=== PATIENT | female | born 1965 | race African-American/Black ===

== ENCOUNTER 2020-03-13 06:19 | Day surgery (SDC) | payer OTHER ==
[2020-03-06 09:11] LABS: BASOPHILS % (AUTO) 0.7 % (0.0-5.0); EOSINOPHILS % (AUTO) 2.3 % (0.0-8.0); HEMATOCRIT 33.8 % (36-48); LYMPHOCYTES % (AUTO) 43.4 % (21.0-51.0); MEAN CORPUSCULAR HEMOGLOBIN 27.9 pg (27.0-33.0); MEAN CORPUSCULAR HGB CONC 33.1 g/dL (32.0-36.0); MEAN CORPUSCULAR VOLUME 84.3 fL (79-99); MONOCYTES % (AUTO) 7.7 % (3.0-13.0); NEUTROPHILS % (AUTO) 45.4 % (40.0-77.0); PLATELET COUNT (AUTO) 326 K/uL (130-400); RED BLOOD CELL COUNT(AUTO) 4.01 MIL/uL (4.00-5.50); RED CELL DISTRIBUTION WIDTH 13.9 % (11.0-15.5); WHITE BLOOD COUNT (AUTO) 4.4 K/uL (4.8-10.8)
[2020-03-06 09:18] LABS: CREATININE 0.9 mg/dL (0.5-1.5); POTASSIUM 4.7 mmol/L (3.5-5.1)
[2020-03-08 14:35] VITALS: BP 137/71
[~2020-03-13] VITALS: Ht 157.5 cm; Wt 75.3 kg
[2020-03-13] VITALS (17 sets, daily range): BP systolic 108–139; BP diastolic 58–81
[~2020-03-13 06:19] MED LIST: ATOR40TA71 PO; BUSP15TA3 PO; CELE400C PO; CYCL10TA7 PO; GABA-529 PO; LISI-661 PO; METOPROLOL PO; SERT50TA12 PO; VENL150C2 PO; [UNRECOGNIZED DRUG - OTHER] PO
[2020-03-13] MEDS ORDERED: LACTATED RINGERS 1000ML 1,000 ML IV ONE (07:33)
[2020-03-13] MEDS ORDERED: SUCCINYLCHOLINE CHLORIDE 20 MG/ML 10 ML VIAL ONE (07:50)
[2020-03-13] MEDS ORDERED: ROCURONIUM 10MG/1ML SYR 10 MG/ML ML ONE (07:51)
[2020-03-13] MEDS ORDERED: FENTANYL CITRATE PF 50 MCG/1 ML 2ML VIAL ONE (07:51)
[2020-03-13] MEDS ORDERED: PROPOFOL 10 MG/ML 20ML VIAL IV ONE (07:51)
[2020-03-13] MEDS ORDERED: MIDAZOLAM HCL 1 MG/ML 2ML VIAL ONE (07:56)
[2020-03-13] MEDS ORDERED: ROPIVACAINE 0.5% 5MG/ML 30ML IJ ONE (07:57)
[2020-03-13] MEDS: CEFAZOLIN SODIUM 1 GM VIAL IVP SCH ×2 (08:00→09:27)
[2020-03-13] MEDS ORDERED: EPINEPHRINE 1 MG/ML 30ML VIAL IJ ONE (08:32)
[2020-03-13] MEDS ORDERED: ONDANSETRON HCL 4 MG/2 ML VIAL ONE (11:48)
[2020-03-13] MEDS ORDERED: KETOROLAC TROMETHAMINE 30MG/ML ONE (11:49)
[2020-03-13] MEDS ORDERED: GLYCOPYRROLATE 1 MG/5 ML SYRINGE ONE (11:49)
[2020-03-13] MEDS ORDERED: NEOSTIGMINE 5MG/5ML SYR IV ONE (11:49)
[2020-03-13] MEDS ORDERED: MEPERIDINE-PF 25 MG/ML SYG ONE (12:02)
[2020-03-13] MEDS ORDERED: HYDR-4457 PO (12:04)
[2020-03-13] MEDS ORDERED: CEPH500B PO (12:04)
== END 2020-03-13 14:05 | disposition home or self-care (01) ==
LOC: DAH 06:19
PROVIDERS: ATTEND Orthopaedic Surgery
DX: M75.121 Complete rotator cuff tear or rupture of right shoulder, not specified as traumatic (principal); M19.011 Primary osteoarthritis, right shoulder; Z20.828 Contact with and (suspected) exposure to other viral communicable diseases; M75.21 Bicipital tendinitis, right shoulder; M25.511 Pain in right shoulder; M25.811 Other specified joint disorders, right shoulder; M24.111 Other articular cartilage disorders, right shoulder; I10 Essential (primary) hypertension; Z98.890 Other specified postprocedural states; Z90.710 Acquired absence of both cervix and uterus; Z90.89 Acquired absence of other organs; Z98.51 Tubal ligation status; Z88.8 Allergy status to other drugs, medicaments and biological substances; Z83.3 Family history of diabetes mellitus; Z82.49 Family history of ischemic heart disease and other diseases of the circulatory system; Z82.61 Family history of arthritis; Z80.9 Family history of malignant neoplasm, unspecified; Z80.8 Family history of malignant neoplasm of other organs or systems
CPT/HCPCS: 29824; 29826; 29827; 29828; 36415; 64415; 76942; 80048; 85025; A4216; A4221; A4222; A4223 ×2; A4565; A4649 ×6; A4663; A4930; A6204; C1713 ×3; C9803; G0168; J0171; J0330; J0690; J1885; J2175; J2250; J2405; J2704; J2710; J2795; J3010; J3490; J7030; J7120; U0003; 96374

== ENCOUNTER → 2020-04-07 | Outpatient (CLI) | payer OTHER ==
[~2020-04-07] MED LIST changes: +CEPH500B PO; +HYDR-4457 PO; +SERT-439 PO; -SERT50TA12 PO
== END | disposition home or self-care (01) ==
LOC: CANPRECLI → RAH 10:00
PROVIDERS: ATTEND Orthopaedic Surgery
DX: M19.011 Primary osteoarthritis, right shoulder (principal); M77.8 Other enthesopathies, not elsewhere classified; M25.411 Effusion, right shoulder; Z98.890 Other specified postprocedural states
CPT/HCPCS: 73221

== ENCOUNTER → 2020-08-04 | Outpatient (CLI) | payer OTHER | END | disposition home or self-care (01) | LOC: RAH 08:29 | PROVIDERS: ATTEND Orthopaedic Surgery | DX: S43.421A Sprain of right rotator cuff capsule, initial encounter (principal); Z98.890 Other specified postprocedural states; X58.XXXA Exposure to other specified factors, initial encounter; Y93.89 Activity, other specified; Y92.89 Other specified places as the place of occurrence of the external cause; Y99.8 Other external cause status | CPT/HCPCS: 73221 ==

== ENCOUNTER 2020-08-23 08:48 | Day surgery (SDC) | payer OTHER ==
[2020-08-18 09:59] LABS: BASOPHILS % (AUTO) 1.3 % (0.0-5.0); EOSINOPHILS % (AUTO) 3.1 % (0.0-8.0); HEMATOCRIT 33.6 % (36-48); LYMPHOCYTES % (AUTO) 51.1 % (21.0-51.0); MEAN CORPUSCULAR HEMOGLOBIN 28.7 pg (27.0-33.0); MEAN CORPUSCULAR HGB CONC 31.8 g/dL (32.0-36.0); MEAN CORPUSCULAR VOLUME 90.1 fL (79-99); MONOCYTES % (AUTO) 9.1 % (3.0-13.0); NEUTROPHILS % (AUTO) 35.2 % (40.0-77.0); PLATELET COUNT (AUTO) 269 K/uL (130-400); RED BLOOD CELL COUNT(AUTO) 3.73 MIL/uL (4.00-5.50); RED CELL DISTRIBUTION WIDTH 13.8 % (11.0-15.5); WHITE BLOOD COUNT (AUTO) 4.5 K/uL (4.8-10.8)
[2020-08-18 10:17] LABS: CREATININE 0.8 mg/dL (0.5-1.5); POTASSIUM 4.5 mmol/L (3.5-5.1)
[2020-08-22 13:52] VITALS: BP 155/83
[2020-08-23] VITALS (17 sets, daily range): BP systolic 121–149; BP diastolic 71–94
[~2020-08-23] VITALS: Ht 154.9 cm; Wt 78.9 kg
[~2020-08-23 08:48] MED LIST changes: -CELE400C PO; -CEPH500B PO; -CYCL10TA7 PO; -HYDR-4457 PO; +IBUP-2077 PO; +METO-391 PO; -METOPROLOL PO; +MIRT-22 PO; -SERT-439 PO; +TYL3B PO; -[UNRECOGNIZED DRUG - OTHER] PO
[2020-08-23] MEDS ORDERED: LACTATED RINGERS 1000ML 1,000 ML IV ONE (09:12)
[2020-08-23] MEDS: CEFAZOLIN SODIUM 1 GM VIAL IVP SCH ×2 (09:34→13:00)
[2020-08-23] MEDS ORDERED: MORPHINE 2 MG SYG ONE (11:11)
[2020-08-23] MEDS ORDERED: GLYCOPYRROLATE 1 MG/5 ML SYRINGE ONE (11:45)
[2020-08-23] MEDS ORDERED: ONDANSETRON 4MG INJ ONE (11:45)
[2020-08-23] MEDS ORDERED: MIDAZOLAM HCL 1 MG/ML 2ML VIAL ONE ×2 (11:45→12:31)
[2020-08-23] MEDS ORDERED: LIDOCAINE PF 100MG/5ML (2%) SYRINGE 5ML ONE (11:45)
[2020-08-23] MEDS ORDERED: DEXAMETHASONE SOD PHOSPHATE 10MG/ML 1ML VIAL ONE (11:45)
[2020-08-23] MEDS ORDERED: SUCCINYLCHOLINE CHLORIDE 20 MG/ML 10 ML VIAL ONE (11:45)
[2020-08-23] MEDS ORDERED: NEOSTIGMINE 5MG/5ML SYR IV ONE (11:45)
[2020-08-23] MEDS ORDERED: PROPOFOL 10 MG/ML 20ML VIAL IV ONE (11:45)
[2020-08-23] MEDS ORDERED: FENTANYL CITRATE PF 50 MCG/1 ML 2ML VIAL ONE (11:46)
[2020-08-23] MEDS ORDERED: ROCURONIUM 10MG/1ML SYR 10 MG/ML ML ONE (11:46)
[2020-08-23] MEDS ORDERED: ROPIVACAINE 0.5% 5MG/ML 30ML IJ ONE (11:48)
[2020-08-23] MEDS ORDERED: EPINEPHRINE 1 MG/ML 30ML VIAL IJ ONE (12:15)
[2020-08-23] MEDS ORDERED: EPHEDRINE SULFATE 50 MG/ML AMPULE ONE (12:58)
[2020-08-23] MEDS ORDERED: PHENYLEPHRINE HCL 10 MG/ML 1ML VIAL IV ONE (13:00)
[2020-08-23] MEDS ORDERED: OXYC-38 PO (15:06)
[2020-08-23] MEDS ORDERED: CEPH500B PO (15:06)
== END 2020-08-23 17:00 | disposition home or self-care (01) ==
LOC: DAH 08:48
PROVIDERS: ATTEND Orthopaedic Surgery
DX: M75.121 Complete rotator cuff tear or rupture of right shoulder, not specified as traumatic (principal); Z20.822 Contact with and (suspected) exposure to COVID-19; I10 Essential (primary) hypertension; I25.10 Atherosclerotic heart disease of native coronary artery without angina pectoris; Z90.710 Acquired absence of both cervix and uterus; Z98.51 Tubal ligation status; Z90.89 Acquired absence of other organs; Z98.890 Other specified postprocedural states; Z98.891 History of uterine scar from previous surgery; Z79.899 Other long term (current) drug therapy; Z82.49 Family history of ischemic heart disease and other diseases of the circulatory system; Z83.3 Family history of diabetes mellitus; Z80.9 Family history of malignant neoplasm, unspecified
CPT/HCPCS: 23412; 36415; 64415; 76942; 80048; 85025; 87635; A4649 ×5; A4930; A6204; C1713; C9803; J0171; J0330; J0690; J1100; J2001; J2250 ×2; J2370; J2405; J2704; J2710; J2795; J3010; J3490 ×2; J7120 ×2

== ENCOUNTER 2020-10-26 17:12 | Emergency (ER) | payer OTHER ==
[~2020-10-26] VITALS: Ht 154.9 cm; Wt 78.9 kg
[~2020-10-26 17:12] MED LIST changes: +CEPH500B PO; +OXYC-38 PO; -TYL3B PO
[2020-10-26 17:14] VITALS: BP 149/91
[2020-10-26] MEDS ORDERED: ACETAMINOPHEN WITH CODEINE 1 TAB TAB PO ONE (20:30)
[2020-10-26 20:36] LABS: BASOPHILS % (AUTO) 0.4 % (0.0-5.0); EOSINOPHILS % (AUTO) 1.8 % (0.0-8.0); HEMATOCRIT 32.5 % (36-48); LYMPHOCYTES % (AUTO) 48.6 % (21.0-51.0); MEAN CORPUSCULAR HEMOGLOBIN 28.7 pg (27.0-33.0); MEAN CORPUSCULAR HGB CONC 32.3 g/dL (32.0-36.0); MEAN CORPUSCULAR VOLUME 88.8 fL (79-99); MONOCYTES % (AUTO) 5.9 % (3.0-13.0); NEUTROPHILS % (AUTO) 43.2 % (40.0-77.0); PLATELET COUNT (AUTO) 280 K/uL (130-400); RED BLOOD CELL COUNT(AUTO) 3.66 MIL/uL (4.00-5.50); RED CELL DISTRIBUTION WIDTH 14.1 % (11.0-15.5); WHITE BLOOD COUNT (AUTO) 7.2 K/uL (4.8-10.8)
[2020-10-26 20:43] LABS: CARBON DIOXIDE 27 mmol/L (21-32); CHLORIDE 105 mmol/L (101-111); CREATININE 0.8 mg/dL (0.5-1.5); GLOMERULAR FILTR. RATE CALC 96 mL/min (>60); GLUCOSE,RANDOM 91 mg/dL (70-105); POTASSIUM 3.9 mmol/L (3.5-5.1); SODIUM SERUM 143 mmol/L (136-145); UREA NITROGEN, BLOOD 12 mg/dL (7-18)
[2020-10-26 20:47] LABS: ALANINE AMINOTRANSFERASE 93 U/L (12-78); ASPARTATE AMINOTRANSFERASE 27 U/L (10-37); BILIRUBIN,TOTAL 0.3 mg/dL (0.2-1.0); TOTAL PROTEIN, SERUM 7.7 g/dL (6.0-8.3)
[2020-10-26 20:54] LABS: CRP QUANTITATIVE < 2.00 mg/L (0.00-9.0)
[2020-10-26] MEDS ORDERED: MELO7.5T12 PO (21:10)
== END 2020-10-26 21:44 | disposition home or self-care (01) ==
LOC: EDH 17:12
DX: S86.812A Strain of other muscle(s) and tendon(s) at lower leg level, left leg, initial encounter (principal); E78.00 Pure hypercholesterolemia, unspecified; I10 Essential (primary) hypertension; Z88.8 Allergy status to other drugs, medicaments and biological substances; Z88.2 Allergy status to sulfonamides; Z88.6 Allergy status to analgesic agent; Z79.899 Other long term (current) drug therapy; Z98.890 Other specified postprocedural states; X58.XXXA Exposure to other specified factors, initial encounter; Y93.89 Activity, other specified; Y92.89 Other specified places as the place of occurrence of the external cause; Y99.8 Other external cause status
CPT/HCPCS: 36415; 80053; 84484; 85025; 86140; 93005; 93971